=== PATIENT | male | born 1970 | race Caucasian/White ===

== ENCOUNTER → 2017-06-07 | Outpatient (CLI) | payer OTHER, SELFPAY | PROVIDERS: Visit Provider Orthopaedic Surgery | DX: M25.511 Pain in right shoulder (principal) | CPT/HCPCS: 73221 ==

== ENCOUNTER 2022-04-07 18:38 | Emergency (ER) | payer OTHER, SELFPAY ==
[2022-04-07 18:40] VITALS: BP 168/98; PULSE 90; RESP 16; TEMP 37; O2SAT 98; BMI 41.8
--- NOTE | 2022-04-07 19:18 | HMH.EDGENADL ---
Discharge Plan Disposition Patient Disposition: Home, Self-Care Condition: Good Prescriptions Prescriptions: New cefadroxil 500 mg capsule 500 mg PO BID 5 Days Qty: 10 0RF No Action furosemide [Lasix] 20 mg tablet 20 mg PO ONCE lisinopril 20 mg tablet 20 mg PO QDAY oxycodone-acetaminophen 1 EACH tablet 1 tab PO Q6HP PRN (Reason: Moderate To Severe Pain) Qty: 10 0RF tamsulosin 0.4 MG capsule,extended release 24hr 0.4 mg PO HS Qty: 10 0RF ondansetron 4 MG tablet,disintegrating 4 mg PO TIDP PRN (Reason: Nausea And Vomiting) Qty: 10 0RF Referrals Follow up/Referrals: Annamaria Rodney MD [Primary Care Provider] - See instructions Clinical Impressions Clinical Impression: Abrasion of left hand, initial encounter Discharge ED Provider: Cliff Hayden General Adult HPI General Chief complaint: Burn/Smoke Inhalation Stated complaint: AO 04/06 @1600 Poss concrete burn Time Seen by Provider: 04/07/22 19:00 History of Present Illness HPI narrative: Is a 51-year-old male with history of hypertension presenting with left hand injury. Patient states that he was shoveling concrete when he rubbed the skin off the medial aspect of his left third, fourth, fifth digits. He came to the ED for further evaluation given concern for concrete burn. Denies any other trauma, neurologic deficits, red streaking up his arms, fevers, chills, or any other concerning symptoms. Related Data Home Medications Medication Instructions Recorded Confirmed furosemide 20 mg tablet (Lasix) 20 mg PO ONCE blood pressure 07/04/17 11/16/17 lisinopril 20 mg tablet 20 mg PO QDAY blood pressure 07/04/17 11/16/17 Previous Rx's Medication Instructions Recorded ondansetron 4 mg disintegrating 4 mg PO TIDP PRN Nausea And 11/16/17 tablet Vomiting ##10 oxycodone-acetaminophen 5 mg-325 1 tab PO Q6HP PRN Moderate To 11/16/17 mg tablet Severe Pain #10 tabs tamsulosin 0.4 mg capsule 0.4 mg PO HS ##10 11/16/17 cefadroxil 500 mg capsule 500 mg PO BID 5 days #10 caps 04/07/22 Allergies Allergy/AdvReac Type Severity Reaction Status Date / Time No Known Allergies Allergy Verified 11/16/17 08:45 [facility] Social History Smoking Status: Never smoker alcohol intake: never current occupational status: employed Travel in the last 8 weeks: None ROS Obtained: Yes All systems reviewed & no additional complaints except as documented Physical Exam General General appearance: alert and in no apparent distress Head Head exam: atraumatic, normocephalic and normal inspection Eye Eye exam: Present normal appearance, PERRL and EOMI ENT ENT exam: Present normal exam, normal oropharynx, mucous membranes moist, TM's normal bilaterally and normal external ear exam Neck Neck exam: Present normal inspection, full ROM and trachea midline; Absent meningismus or lymphadenopathy Chest Chest inspection: Present normal inspection and symmetric chest wall rise; Absent tenderness Respiratory Respiratory exam: Present normal lung sounds bilaterally; Absent respiratory distress Cardiovascular Cardiovascular exam: Present regular rate and normal rhythm; Absent JVD Abdominal Exam Abdominal exam: Present soft and normal bowel sounds; Absent distention, tenderness or guarding Extremities Exam Extremities exam: Present normal inspection, full ROM and normal capillary refill; Absent calf tenderness Expanded Upper Extremity Exam Left: Hand L/R front image: 1. abrasion (With overlying concrete residue) 2. abrasion (With overlying concrete residue) 3. abrasion (With overlying concrete residue) Back Exam Back exam: Present normal inspection; Absent tenderness Neurological Exam Neurological exam: Present alert and oriented X3 Psychiatric Psychiatric exam: Present normal affect and normal mood Skin Skin exam: Present warm, dry, intact and normal color Lymphatic Lymphatic Findings: no adenopathy Medical D
[2022-04-07 19:31] VITALS: BP 166/83; PULSE 85; O2SAT 96
[2022-04-07 20:14] VITALS: BP 161/81; PULSE 82; RESP 16; TEMP 37; O2SAT 96
== END 2022-04-07 20:16 | disposition home or self-care (01) ==
PROVIDERS: Emergency Provider Emergency Medicine; PCP Family Medicine
DX: S60.512A Abrasion of left hand, initial encounter (principal)
CPT/HCPCS: 99282

== ENCOUNTER 2025-05-18 11:16 | Day surgery (SDC) | payer BC, SELFPAY ==
--- NOTE | 2025-05-08 13:10 | EXP.HP ---
History of Present Illness *Admission Date: 05/18/25 *History of present illness: Mr. Guerrero is a 54-year-old gentleman who is here for initial screening colonoscopy. The examination is deemed medically necessary for screening colonoscopy. The patient has been seen, interviewed and examined prior to the procedure by both myself and the anesthesia provider. [facility] Disclaimer: The information contained in this section may have been updated after the patient was seen, as this information can be updated by other users. Medical History Hypertension Surgical History History of back surgery Hx of repair of rotator cuff Family History Mother Cancer Social History (Updated 05/18/25 @ 12:32 by Shantanu Ventura CRNA) Smoking Status: Never smoker alcohol intake: never substance use type: denies use current occupational status: retired Travel in the last 8 weeks?: None caffeine: Yes Have you lived/traveled outside US in past 30 days?: No Contact w/someone who lives/traveled outside US past 30 days?: No Exposure to someone with infectious disease in past 14 days?: No Do you have a fever (greater than 100.4 F or 38 C)?: No Have you tested positive for COVID-19?: No Exposed to someone with COVID-19 in past 14 days?: No Do you have a sore throat?: No Do you have a cough?: No Do you have any weakness?: No Are you experiencing any nausea/vomitting?: No Do you have any diarrhea?: No Are you experiencing any unusual bleeding?: No Do you have any muscle aches/pain?: No Do you have any abdominal pain?: No Are you experiencing loss of taste or smell?: No Other Medical History Have you received the Flu Vaccine for this season: No Review of Systems Review of Systems Review of systems (narrative): Negative *Cardiovascular Comments: Negative *Gastrointestinal Comments: Negative *Genitourinary Comments: Negative *Musculoskeletal Comments: Negative *Neurologic Comments: Negative Meds Home Medications and Allergies Home Medications ?Medication ?Instructions ?Recorded ?Confirmed ?Type sod picosulf 10 mg-magnes 3.5 175 ml PO DAILY 2 doses #350 mL 01/16/24 Rx gram-citric 12 gram/175 mL oral solution (Clenpiq) sodium,potassium,mag sulfates 17.5 See Rx Instructions PO .COMPLEX 05/04/25 Rx gram-3.13 gram-1.6 gram oral soln #354 mL (Suprep Bowel Prep Kit) amlodipine 10 mg tablet 10 mg PO DAILY 05/18/25 05/18/25 History aspirin 81 mg tablet 81 mg PO DAILY 05/18/25 05/18/25 History doxazosin 8 mg tablet 8 mg PO HS 05/18/25 05/18/25 History hydrochlorothiazide 12.5 mg capsule 12.5 mg PO DAILY 05/18/25 05/18/25 History naproxen sodium 220 mg capsule 220 mg PO HS back pain 05/18/25 05/18/25 History (Aleve) omeprazole 20 mg capsule,delayed 20 mg PO HS 05/18/25 05/18/25 History release rosuvastatin 20 mg tablet 20 mg PO DAILY 05/18/25 05/18/25 History New Prescriptions to Start Prescriptions: Allergies Allergy/AdvReac Type Severity Reaction Status Date / Time No Known Allergies Allergy Verified 05/18/25 12:04 Exam *Routine HEENT Exam Head: Present normocephalic Eye: Present EOMI and PERRL ENT: Present mucous membranes moist *Routine Neck Exam Neck: Present supple *Routine Respiratory Exam Respiratory: Present CTA bilaterally *Routine Cardiovascular Exam Cardiovascular: Present RRR *Routine Abdominal Exam Abdominal: Present soft and normoactive bowel sounds; Absent tenderness *Routine Rectal Exam Rectal:: deferred *Routine Genitalia Exam Genitalia:: deferred *Routine Extremities Exam Extremities: Absent cyanosis, clubbing or edema *Routine Skin Exam Skin: Present warm; Absent rash *Routine Neurological Exam Neurological: Present alert and oriented X3 Assessment and Plan *Assessment and plan (1) Screening for colon cancer: Status: Acute Category: Medical Code(s): Z12.11 - Encounter for screening for malignant neoplasm of colon Plan A/P: 1. Screening for colon cancer is the preprocedural diagnosis. The patient will be anesthetized/sedated using MAC sedation. The patient has been seen and examined. Cardiac and lung assessment prior to the examination is stable. Proceed with planned screening colonoscopy.
[2025-05-12 12:55] VITALS: BMI 36.9
--- NOTE | 2025-05-18 07:11 | P.PCN_ITS ---
[facility] Procedure Note Date: 05/18/25 Time: 14:02 Procedure Note:: Colonoscopy Procedure Report: Colonoscopy Endoscopist: Donny Galo II, MD Referring physician: Stiven Rodney MD Date of Procedure: May 18, 2025 Equipment: Olympus [id number] adult colonoscope Sedation: MAC sedation Indication: Mr. Guerrero is a 54-year-old gentleman who is here for initial screening colonoscopy. The patient reports no abdominal pain, weight loss, change in his bowel habits or rectal bleeding. He reports no family history of colon cancer. The examination is deemed medically necessary for screening colonoscopy. Procedure: Prior to the procedure, a history and physical exam was performed, and patient's medications and allergies were reviewed. The risks, benefits and alternatives of the sedation and procedure were discussed with the patient. All questions were answered and informed consent was obtained. The patient was brought to the procedure room. Patient identification and proposed procedure were verified by the physician and the nurse. The patient was placed in a left lateral decubitus position and the scope was passed under direct vision. Throughout the procedure, the patient's blood pressure, pulse, and oxygen saturations were monitored continuously. The colonoscopy was accomplished without difficulty. The patient tolerated the procedure well. Findings: On digital rectal examination there was normal rectal tone. There were no external hemorrhoids. The prostate was 2+, smooth, soft, symmetric without nodules. The colonoscope was introduced through the anal canal to the rectum and advanced to the cecum. The ileocecal valve and appendiceal orifice were bianca ntified. The scope was advanced a short distance into the ileum which appeared grossly normal. The scope was then withdrawn into the colon. The cecum, ascending, transverse, descending, sigmoid and rectum were grossly normal. There were no mucosal abnormalities identified. Upon retroflexion within the rectum there were grade 1-2 internal hemorrhoids. The preparation was excellent throughout with Corrales Preparation Score of 9. The cecal time was 10 minutes. Impression: 1. Normal colonoscopy with intubation of the terminal ileum 2. Grade 1-2 internal hemorrhoids Plan: The patient will not require screening/surveillance colonoscopy again for 10 years per ACS guidelines.
[2025-05-18 12:05] VITALS: BP 131/72; PULSE 41; RESP 16; TEMP 36.7; O2SAT 99
[2025-05-18] MEDS: LACTATED RINGERS 1000ML 1,000 ML 50 ML IV (12:16)
--- NOTE | 2025-05-18 12:30 | EXP.ANES.CKL ---
[facility] Disclaimer: The information contained in this section may have been updated after the patient was seen, as this information can be updated by other users. Medical History Hypertension Surgical History History of back surgery Hx of repair of rotator cuff Family History Mother Cancer Social History (Updated 05/18/25 @ 12:06 by Tiana Houston RN) Smoking Status: Never smoker alcohol intake: never substance use type: denies use current occupational status: retired Travel in the last 8 weeks?: None caffeine: Yes [facility] Anesthesia Checklist Patient Identification Patient Identification: Arm Band and Family Structural Data Admitted From: Home Planned Operative Procedure/s: Colonoscopy. Consent for Planned Operative Procedure(s) Verified: Yes Verified Documents: Surgical Consent and History and Physical NPO Status Verified Time NPO: 00:00 Additional verifications Patient : No Anesthesia Reactions: No Hx Blood Transfusions: No Blood Transfusion Reaction: No Cephalosporin Allergy: No Previous Colonoscopy: No Airway Assessment Mallampati Score:: Class II C-Spine Mobility Assessed: Yes TMJ Mobility Assessed: Yes Dentition: Good Dentition Neurological Assessment Level of Consciousness: Awake, Alert, Appropriate and Follows Commands Hx Seizures: No Numbness or tingling in extremities: No Anesthesia Plan Anesthesia Risk discussed: Yes ASA Class: II Anesthesia Type: MAC
[2025-05-18 14:04] VITALS: BP 124/68; PULSE 58; RESP 20; TEMP 36.1; O2SAT 95
[2025-05-18 14:14] VITALS: BP 113/67; PULSE 54; O2SAT 96
[2025-05-18 14:24] VITALS: BP 122/72; PULSE 60; O2SAT 96
[2025-05-18 14:34] VITALS: BP 130/75; PULSE 59; O2SAT 97
== END 2025-05-18 14:34 | disposition home or self-care (01) ==
PROVIDERS: PCP Family Medicine; Visit Provider Internal Medicine Gastroenterology
PROC: 0DJD8ZZ Inspection of Lower Intestinal Tract, Via Natural or Artificial Opening Endoscopic (ICD-10-PCS; CPT 45378; principal; 2025-05-18 13:00)
DX: Z12.11 Encounter for screening for malignant neoplasm of colon (principal); K64.0 First degree hemorrhoids; K64.1 Second degree hemorrhoids; I10 Essential (primary) hypertension; Z79.899 Other long term (current) drug therapy; Z79.82 Long term (current) use of aspirin
CPT/HCPCS: 45378; J2003; J2704; J7120

== ENCOUNTER 2025-06-09 11:44 | Outpatient (CLI) | payer BC, SELFPAY ==
--- OUTSIDE RECORDS SUMMARY | 2025-02-04 10:15 | XMS_ITS ---
Author Organization [facility] Address [address] [id number] Care Team Providers Care Compensation Agent Name Role Phone Ivory Rodney Primary Care Provider [phone] Artem Torres Unavailable [phone] Cony Torres Unavailable [phone] Allergies No Known Allergies Results Component Value Reference Range Notes CBC Fingerstick (in house) Reviewed date:02/04/2025 04:53:23 PM Interpretation: Performing Lab: Notes/Report: wbc 6.1 3.5 - 10 lym 18.5% 15 - 50 mid 5.9% 2 - 15 gran 75.6% 35 - 80 rbc 4.95 3.5 - 5.5 hgb 14.9 11.5 - 16.5 hct 44.6 35 - 55 mcv 90.1 75 - 100 mch 30.2 25 - 35 mchc 33.5 31 - 38 plat 150 100 - 400 Covid test (in house) Reviewed date:02/04/2025 04:53:23 PM Interpretation: Performing Lab: Notes/Report: Result: pos REASON FOR VISIT poss.sinus infection Medications Medication SIG (Take, Route, Frequency, Duration) Notes Start Date End Date Status Omeprazole 20 MG 1 tablet 30 minutes before morning meal Orally Once a day; Duration: 30 day(s) Active Bisoprolol Fumarate 5 MG 1 tablet Orally Once a day; Duration: 30 day(s) Active dilTIAZem HCl ER 180 MG 1 tablet Orally Once a day; Duration: 30 day(s) Active hydroCHLOROthiazide 12.5 MG 1 tablet in the morning Orally Once a day; Duration: 30 day(s) Active Rosuvastatin Calcium 40 MG 1 tablet Oral ly Once a day; Duration: 30 day(s) Active Molnupiravir 200 MG 4 capsules Orally ev ulysses 12 hrs; Duration: 5 days 02/04/2025 Active Benzonatate 200 MG 1 capsule as needed Orally Three times a day 02/04/2025 Active Amoxicillin 875 MG 1 tablet Orally Twic e a day; Duration: 7 days 02/04/2025 Active Aspirin 81 MG 1 tablet Orally Once a day; Duration: 30 day(s) Active Medrol 4 MG as directed Orally 02/04/2025 Active Doxazosin Mesylate 8 MG 1 tablet Orally Once a day; Duration: 30 day(s) Active Vital Signs Blood pressure systolic 132 mm Hg 02/05/20 25 Blood pressure diastolic 72 mm Hg 025 Heart Rate 68 /min 02/04/2025 Height 67 in 02/04/2025 Weight 251.2 lbs 02/04/2025 BMI 39.34 kg/m2 02/04/2025 Encounters Encounter Location Date Provider Diagnosis [facility] [address], [place] [id number] 02/04/2025 Cony Torres Acute URI J06.9 and COVID-19 U07.1 Assessments Encounter Date Diagnosis (ICD Code) Assessment Notes Treatment Notes Treatment Clinical Notes Section Notes 02/04/2025 Acute URI (ICD-10 - J06.9) 02/04/2025 COVID-19 (ICD-10 - U07.1) Fluids, rest, supportive measures for fever and symptoms relief, discussed covid vitamins and isolation period. Plan Of Treatment Medication Medication Name Sig Start Date Stop Date Notes Molnupiravir 200 MG 4 capsules Orally ev ulysses 12 hrs; Duration: 5 days 02/04/2025 Benzonatate 200 MG 1 capsule as needed Orally Three times a day 02/04/2025 Amoxicillin 875 MG 1 tablet Orally Twic e a day; Duration: 7 days 02/04/2025 Medrol 4 MG as directed Orally 02/04/2025 Treatment Notes Assessment Notes COVID-19 Fluids, rest, suppor tive measures for fever and symptoms relief, discussed covid vitamins and isolation period. Next Appt Details Follow Up: prn, Reason: Provider Name:Artem Stone ry, 06/09/2025 11:15:00 AM, [address], [address] , [place], [place], [id number], Progress Notes * Bib GUERREROOB:1970 ( 54 yo M)Acc No.[id number]:02/04/2025 Progress Notes Patient: Zhao BLACKMON Provider: ERVIN Sotelo :1970 A ge:54 Y S ex:Male Date:02/04/2025 Address:[address] [place] [address], [place], [facility] Pcp:Ivory Rodney Subjective: * Chief Complaints: * 1 . Poss.sinus infection. * HPI: E NT/respiratory: Pt states these symptoms stared 3 days ago. Pt states he is getting worse. 54 year old male presents with c/o cough d ry without any sputum production. c/o nasal congestion. c/o Fever w ith chills. Denies : sore throat. D enies : ear pain. D enies : Chest Pain. D enies : Short of Breath. D enies : headache. D enies : chest congestion. D enies : dizziness. D enies : body aches. * ROS: D ERMATOLOGY: no R evette. n o H dong. G ASTROENTEROLOGY: no N ausea. n o V omiting. n o D iarrhea.? U ROLOGY: no D ifficulty urinating. n o B lood in urine. * Medical History: A llergies. * Surgical History: r otator cuff(RT.) 2005, back surgery 08/01, Right Rotator Cuff Surgery 2020, Left Rotator Cuff Surgery 2021. * Hospitalization/Major Diagno stic Procedure: s taph infection in eye , drink bone worker fluid , heart attack . * Family History: F ather: alive. M other: alive. 2 brother(s) . 2 daughter(s) . . * Social History: C URRENT TOBACCO USE S moking Status: Patient does NOT smoke, Type of smokeless tobacco used: dip. C affeine: no, frequency:. Exercise: yes. Home smoke detector use: yes. Marital Status: . New since last visit: none. Occupation: yes. Past smoking status: no. Occup. exposure: none. Recreational drug use: no. Alcohol: Type: , Frequency: ,Years: , Determination:. Sexually active: yes. Travel ouside [place]: yes. * Medications: T aking Omeprazole 20 MG Tablet Delayed Release 1 tablet 30 minutes before morning meal Orally Once a day , Taking Bisoprolol Fumarate 5 MG Tablet 1 tablet Orally Once a day , Taking hydroCHLOROthiazide 12.5 MG Tablet 1 tablet in the morning Orally Once a day , Taking dilTIAZem HCl ER 180 MG Tablet Extended Release 24 Hour 1 tablet Orally Once a day , Taking Rosuvastatin Calcium 40 MG Tablet 1 tablet Orally Once a day , Taking Doxazosin Mesylate 8 MG Tablet 1 tablet Orally Once a day , Taking Aspirin 81 MG Tablet Chewable 1 tablet Orally Once a day , Medication List reviewed and reconciled with the patient * Allergies: N .K.D.A. Objective: * Vitals: W t: 251.2, Temp: 98.0, BP: 132/72, HR: 68, Nurse: pe, Ht: 67, BMI:39.34. * Examination: E NT/Respiratory: General Appearance: N AD. E ars: a uditory canals normal bilaterally, TM's WNL. N ose : t urbinates red, congested. S inuses : t james maxillary sinuses bilaterally. O ral cavity : e rythema without exudate on pharynx. N toni : n o cervical lymphadenopathy. H eart : R RR, normal S1 S2, no murmurs. L ungs:?clear to auscultation bilaterally. Assessment: * Assessment: 1. A ida URI - J06.9 (Primary) 2 . C OVID-19 - U07.1 Plan: * Treatment: Value Reference Range w bc 6.1 3.5 - 10 * l ym 18.5% 15 - 50 * m id 5.9% 2 - 15 * g ran 75.6% 35 - 80 * r bc 4.95 3.5 - 5.5 * h gb 14.9 11.5 - 16.5 * h ct 44.6 35 - 55 * m cv 90.1 75 - 100 * m ch 30.2 25 - 35 * m chc 33.5 31 - 38 * p lat 150 100 - 400 * Nichole Ziegler 02/04/2025 0 4:17:58 PM EDT > Provider reviewed results while patient in office. 2.?COVID-19? Start Molnupiravir Capsule, 200 MG, 4 capsules, Orally, every 12 hrs, 5 days, 40, Refills 0.? Notes: Fluids, rest, supportive measures for fever and symptoms relief, discussed covid vitamins and isolation period.?? * Labs: * L ab: Covid test (in house) (Collection Date & Time - 02/04/2025) Value Reference Range R esult: pos * Nichole Ziegler 02/04/2025 0 4:51:18 PM EDT > Provider reviewed results while patient in office. * Procedure Codes: 3 6416 CAPILLARY BLOOD DRAW, 41703 CBC WITH AUTO DIFF, 76713 COVID TEST IN HOUSE, Modifiers: QW , 1036F TOBACCO NON-USER, 3075F SYST BP GE 130 - 139MM HG, 3078F DIAST BP < 80 MM HG * Follow Up: p rn * Images: Billing Information: * Visit Code: 38212 Office Visit, Est Pt., Level 3. * Procedure Codes: 41001 CAPILLARY BLOOD DRAW. 60008 CBC WITH AUTO DIFF. 17038 COVID TEST IN HOUSE. Modifiers: QW 1036F TOBACCO NON-USER. 3075F SYST BP GE 130 - 139MM HG. 3078F DIAST BP < 80 MM HG. * Electronic signature of ERVIN Cardona on 06/09/2025 at 11:47 AM EST Sign off status: Pending * Provider: ERVIN Sotelo Date: 0 02/04/2025 Generated for Sal ng/Fafaviolag/eTransmitting on: 1 08/10/2024 11:47 AM EST History and Physical Notes * HPI (History of Present Illness) Category Sub-Category Detail Notes Category Not es ENT/respiratory sore throat ear pain Short of Breath Chest Pain cough dry without any sput um production Fever with chills headache chest congestion nasal congestion dizziness body aches Examination Category Sub-Category Detail Notes Category Not es ENT/Respiratory Oral cavity : erythema without exudate on pharynx Sinuses : tender maxillary sin uses bilaterally Ears: auditory canals norm al bilaterally, TM's WNL Neck : no cervical lymphade nopathy Heart : RRR, normal S1 S2, n o murmurs Lungs: clear to auscultatio n bilaterally General Appearance: NAD Nose : turbinates red, polo ested
--- NOTE | 2025-06-09 11:47 | XR_ITS ---
FINAL REPORT CLINICAL HISTORY: PAIN IN RIGHT KNEE COMPARISON: none FINDINGS: LEFT KNEE 3 views of the left knee were obtained. There is no acute fracture or dislocation. There is mild tricompartmental degenerative change. No large joint effusion. Soft tissues are unremarkable. IMPRESSION: Mild degenerative change without acute bony abnormality. Reviewed, Interpreted and Dictated by Annamaria Morfin MD Transcribed by Carolann Castillo Authenticated and [facility]
--- OUTSIDE RECORDS SUMMARY | 2025-06-09 11:48 | XMS_ITS | Encounter Summary ---
Author Organization [facility] Address [address] [place] [id number] Care Team Providers Care Certified Medical Asst Name Role Phone Trena Fox MD Primary Care Provider + Reason for Visit * Reason Onset Date Comments Med Refill 05/13/2025 Encounter Details Date Type Department Care Team (Late st Contact Info) Description 05/13/2025 Refill [facility] [address] [place] [phone] Isabella Chávez APRN [address] [place] [address] [place] [address] Med Refill Social History Tobacco Use Types Packs/Day Years Used Date Smoking Tobacco: Never Passive Smoke Exposure: Never Smokeless Tobacco: Current Chew Comments:IN QRS IT SAYS CURR ENT EVERY DAY SMOKER Alcohol Use Standard Drinks/Week Comments Yes 0 (1 standard drink = 0.6 oz pur e alcohol) occassional AUDIT-C Answer Date Recorded Q1: How often do you have a drink containing alcohol? Never 05/04/2022 Q2: How many drinks containi ng alcohol do you have on a typical day when you are drinking? Patient does not drink Q3: How often do you have si x or more drinks on one occasion? Never 05/04/2022 Abuse Screen Answer Date Recorded Feels Unsafe at Home or Work/School no 05/04/2022 Feels Threatened by Someone no 04/18 Does Anyone Try to Keep You From Having Contact with Others or Doing Things Outside Your Home? no 05/04/2022 Physical Signs of Abuse Present no 05/04/2022 Housing Stability Answer Date Recorded Current Living Arrangements home 04/18 Potentially Unsafe Housing Conditions Not on ivan e 05/04/2022 Disabilities Answer Date Recorded Difficulty Concentrating, Remembering or Making Decisions no 05/04/2022 Difficulty Managing Errands Independently no 05/04/2022 Sex and Gender Information Value Date Recorded Sex Assigned at Not on file Legal Sex Male 11:11 AM EDT Gender Identity Not on file Sexual Orientation Not on file documented as of this encounter Plan of Treatment Not on file documented as of this encounter Visit Diagnoses Not on filedocumented in this encounter Care Teams Certified Medical Asst Relationship Specialty Start Date End Date Trena Fox MD [address] [place], [place] [id number] PCP - General Family Medicine 08/25/20 documented as of this encounter
--- OUTSIDE RECORDS SUMMARY | 2025-06-09 11:48 | XMS_ITS | Encounter Summary ---
Author Organization [facility] Address [address] [place] [address] Care Team Providers Care Gear Cutting Machine Set Up Operator Name Role Phone Trena Fox MD Primary Care Provider + Reason for Visit * Reason Comments Med Refill Encounter Details Date Type Department Care Team (Late st Contact Info) Description 04/29/2025 Refill [facility] [address] [place] [phone] Molly Grace MD [address] [place] [address] Med Refill Social History Tobacco Use [...] on filedocumented in this encounter Care Teams Gear Cutting Machine Set Up Operator Relationship Specialty Start Date End Date Trena Fox MD [address] [place], [place] [id number] PCP - General Family Medicine 08/25/20 documented as of this encounter
--- OUTSIDE RECORDS SUMMARY | 2025-06-09 11:48 | XMS_ITS | Encounter Summary ---
Author Organization [facility] Address [address] [place] [address] Care Team Providers Care Food Processing Chemist Name Role Phone Trena Fox MD Primary Care Provider + Encounter Details Date Type Department Care Team (Late st Contact Info) Description 08/12/2013 Conversion Encounter [facility] HISTORICAL CONV [address] [place] [address] Interface, See Report Social History Tobacco Use Types Packs/Day Years Used Date Smoking Tobacco: Never Assessed Sex and Gender Information Value Date Recorded Sex Assigned at Not on file Legal Sex Male 11:11 AM EDT Gender Identity Not on file Sexual Orientation Not on file documented as of this encounter Discharge Summaries * Interface, See Report - 08/12/2013 6:09 AM EST [address] [address] DISCHARGE SUMMARY PATIENT NAME: ZHAO GUERRERO [address] [facility] NO: [id number] DATE OF : 1970 DATE OF ADMISSION: 08/12/2013 DATE OF DISCHARGE: 08/13/2013 ATTENDING PHYSICIAN: MANSOOR Luo PRIMARY CARE PHYSICIAN: DIAGNOSIS: Spinal stenosis. PROCEDURE: L4-L5 decompression. SURGEON: Valorie Doan MD. HISTORY AND PHYSICAL: Please see note on chart. HOSPITAL COURSE: The patient was admitted where he underwent the above procedure. Postoperatively, he went to a regular bed on the floor. By postop day 1, he was independent with gait and transfers, tolerating a regular diet. Vitals were stable. Leg pain was gone. It was felt he was ready for discharge at this time. DISPOSITION: He will be discharged home. FOLLOW-UP: He will follow-up to see me in 2 weeks. CONDITION: Good. VITAL SIGNS: Vitals are stable. DISCHARGE MEDICATIONS: Medications are unchanged from admission with the exception of Lortab 10 as needed for pain. Valorie Doan MD* GCS/rxtd Voice Rec. ID #[id number] Voice Original ID #[id number] Doc ID #[id number] Rev. #1 [No PCP on file] cc: Valorie Doan MD* DO NOT TEXT EDIT THIS LINE :CDS:[id number]: Authenticated by VALORIE DOAN M.D. On 08/19/2013 11:19:55 AM documented in this encounter OR Notes * Op Note - Interface, See Report - 08/12/2013 6:09 AM EST [place] [id number] OPERATIVE REPORT PATIENT NAME: ZHAO GUERRERO9 [address] [facility] NO: [id number] DATE OF : 1970 DATE OF OPERATION: 08/12/2013 ADMITTING PHYSICIAN/SURGEON: Valorie Doan MD [employer] ATTENDANT: Jah Amaya PA-C PREOPERATIVE DIAGNOSIS: Spinal stenosis, L4-L5. POSTOPERATIVE DIAGNOSIS: Spinal stenosis, L4-L5. PROCEDURE PERFORMED: L4-5 decompression, including partial on the right, including partial medial facetectomy and foraminotomies of L4 and 5. INDICATIONS FOR PROCEDURE: The patient is a 43-year-old male with intractable back and right leg pain. Preop studies reveal stenosis at L4-L5 on the right. This is due to a combination of facet hypertrophy and a disc protrusion. He presents for decompression. The risks and benefits were described to him at a preoperative informed consent meeting. DESCRIPTION OF PROCEDURE: After adequate general anesthetic, the patient was placed in the prone position on the Kenny frame. Care was taken to pad all bony prominences. The back was prepped and draped in the usual fashion. A spinal needle was placed. After the proper level was confirmed, a 1-1/4 inch incision was made, centered over L4-L5, and carried deeply through the fascia on the right side. The lamina of L4 and L5 were subperiosteally exposed. A deep x-ray was also taken to confirm we were at the appropriate level. After confirmation, the inferior portion of the L4 lamina and the superior portion of the L5 lamina were removed with Kerrison punches. The ligamentum flavum was removed as well. A partial medial facetectomy was then performed. I took care to assure that I did not resect any of the facet joint, I just undercut the medial facet. Care was also taken to preserve greater than 1 cm of the L4 pars. There was moderate recess stenosis noted at L4-L5. This had been partially relieved by the medial facetectomy. There was a bulging disc that extended into the foramen; however, there was no herniated fragment. Foraminotomies were then performed at both the L4 and L5 with small Kerrison punches. At the completion, I could easily pass a Kuhn ball probe into the L4 and the L5 foramen. Given the fact I could not identify a distinct herniated disc, I elected not to cut into the annulus. The wound was copiously irrigated at this time. Gelfoam was placed over the dural surface. The fascia was closed with interrupted 0-Vicryl, subcu with 2-0 and 3-0, and the skin with subcuticular stitch. He was transferred to the recovery room in stable condition. Blood loss was minimal for the procedure. Valorie Doan MD* GCS/rxsmj Voice Rec. ID #[id number] Original Voice Rec. ID #[id number] Doc ID #[id number] Revision Count: 0 cc: Valorie Doan MD* <start header> [address] [address] OPERATIVE REPORT PATIENT NAME: ZHAO GUERRERO [address] [facility] NO: [id number] DATE OF : 1970 <end header> DO NOT TEXT EDIT THIS LINE :TIE PULLER:[id number]: Authenticated by VALORIE DOAN M.D. On 08/14/2013 09:50:39 AM documented in this encounter Plan of Treatment Not on file documented as of this encounter Procedures Procedure Name Priority Date/Time Associated Diagnosis Comments XR LOST NEEDLE OR Routine 08/12/2013 11: 47 AM EST XR SPINE LUMBAR LATERAL Routine 08/12/2013 11:04 AM EST XR SPINE LUMBAR LATERAL Routine 08/12/2013 6:19 AM EST SCANNED EKG 08/12/2013 CBC (NO DIFF) Routine 08/11/2013 4:45 PM EST POTASSIUM Routine 08/11/2013 4:45 PM EST documented in this encounter Results * X-RAY LOST NEEDLE OR (08/12/2013 11:47 AM EST) Anatomical Region Laterality Modality Body Radiographic Kat ging 08/12/2013 11:4 7 AM EST Narrative 08/12/2013 5:17 PM EST HISTORY: Incorrect needle count PORTABLE LATERAL VIEW OF THE LUMBAR SPINE AND ADJACENT SOFT TISSUES AND OR AT NO PERFORMANCE OR PROFESSIONAL CHARGE FINDINGS: By history, a relatively large needle was seen to fall away from the patient but could not be immediately located. This image shows clothing fold shadows superimposed over the dorsal soft tissues. There is no evidence of metallic foreign body to suggest retained needle. Director Of Casework- ROSSY CARRANZA Reading Radiologist- DONNY CARRASCO Releasing Radiologist- DONNY CARRASCO Released Date Time- 08/12/13 2048 Procedure Note Donny Pappas MD - 03/09/2015 HISTORY: Incorrect needle count PORTABLE LATERAL VIEW OF THE LUMBAR SPINE AND ADJACENT SOFT TISSUES AND OR AT NO PERFORMANCE OR PROFESSIONAL CHARGE FINDINGS: By history, a relatively large needle was seen to fall away from the patient but could not be immediately located. This image shows clothing fold shadows superimposed over the dorsal soft tissues. There is no evidence of metallic foreign body to suggest retained needle. Director Of Casework- ROSSY CARRANZA Reading Radiologist- DONNY CARRASCO Releasing Radiologist- DONNY CARRASCO Released Date Time- 08/12/132047 Valorie Doan MD IMG DIAGNOSTIC IMAGING ORDERABLES Final Result * X-RAY LUMBAR SPINE LATERAL (08/12/2013 11:04 AM EST) Anatomical Region Laterality Modality Spine, L-spine N/A Radiographic Kat ging 08/12/2013 11:0 4 AM EST Narrative 08/12/2013 12:32 PM EST PRONE CROSS TABLE LATERAL VIEW LUMBAR SPINE: HISTORY: disc space localization, surgical procedure, discectomy, severe back pain and stenosis FINDINGS: 1. A probe is directed from the posterior approach and is directed to the posterior aspect of the L4-L5 interspace. E: 08/12/2013 Director Of Casework- JOE ECHAVARRIA Reading Radiologist- SILVER ENGLISH Releasing Radiologist- SILVER ENGLISH Released Date Time- 08/12/13 1301 Procedure Note Silver Liang MD - 03/09/2015 PRONE CROSS TABLE LATERAL VIEW LUMBAR SPINE: HISTORY: disc space localization, surgical procedure, discectomy, severe back pain and stenosis FINDINGS: 1. A probe is directed from the posterior approach and is directed to the posterior aspect of the L4-L5 interspace. E: 08/12/2013 Director Of Casework- JOE Meade Radiologist- SILVER ENGLISH Releasing RadiologistAbundio ENGLISH Released Date Time- 08/12/13 1301 Valorie Doan MD IMG DIAGNOSTIC IMAGING ORDERABLES Final Result * X-RAY LUMBAR SPINE LATERAL (08/12/2013 6:19 AM EST) Anatomical Region Laterality Modality Spine, L-spine N/A Radiographic Kat ging 08/12/2013 6:19 AM EST Narrative 08/12/2013 12:32 PM EST PRONE CROSSTABLE LATERAL VIEW LUMBAR SPINE HISTORY: Disc space localization, herniated disc, back pain, surgical localization FINDINGS: 1. A needle is directed to the posterior aspect of the L4 vertebral body for preoperative localization. Director Of Casework- ROSSY CARRANZA Reading Radiologist- SILVER ENGLISH Releasing Radiologist- SILVER ENGLISH Released Date Time- 08/12/13 1302 Procedure Note Silver Liang MD - 03/09/2015 PRONE CROSSTABLE LATERAL VIEW LUMBAR SPINE HISTORY: Disc space localization, herniated disc, back pain, surgical localization FINDINGS: 1. A needle is directed to the posterior aspect of the L4 vertebral body for preoperative localization. Director Of Casework- ROSSY CARRANZA Reading Radiologist- SILVER ENGLISH Releasing Radiologist- SILVER ENGLISH Released Date Time- 08/12/13 1302 Valorie Doan MD IMG DIAGNOSTIC IMAGING ORDERABLES Final Result * SCANNED EKG (08/12/2013) [facility] ECG ORDERABLES Final Result * Potassium (08/11/2013 4:45 PM EST) Pathologist [facility] Potassium 4.4 3.4 - 5.4 mmol/L [facility] Blood specimen (specimen) 08/11/2013 4:45 PM EST Narrative [facility] - 08/11/2013 5:21 PM EST Specimen Type: Blood Valorie Doan MD LAB BLOOD ORDERABLES Fi nal Result [facility] [address] [place] [address], * CBC (No diff) (08/11/2013 4:45 PM EST) Pathologist [facility] WBC 7.14 3.50 - 10.80 K/[facility] RBC 4.86 4.20 - 5.76 M/[facility] Hemoglobin 14.9 13.1 - 17.5 g/dL [facility] Hematocrit 44.0 38.9 - 50.9 % [facility] MCV 90.5 80.0 - 99.0 fL [facility] MCH 30.7 27.0 - 31.0 pg [facility] MCHC 33.9 32.0 - 36.0 g/dL [facility] RDW-CV 12.4 11.3 - 14.5 % [facility] Platelets 205 150 - 450 K/mcL [facility] Blood specimen (specimen) 08/11/2013 4:45 PM EST Narrative [facility] - 08/11/2013 5:04 PM EST Specimen Type: Blood Valorie Doan MD LAB BLOOD ORDERABLES Fi nal Result Performing Organization Address City/State/RUST Co de Phone Number [facility] [address] [phone] documented in this encounter Visit Diagnoses Not on filedocumented in this encounter Additional Health Concerns Infection Onset Date Last Indicated Resolved Time COVID Screen (preop/placement) 08/29/2020 08/29/2020 08/29/2020 6:37 PM EDT COVID Screen (preop/placement) 05/08/2021 05/08/2021 05/08/2021 9:02 PM EST documented as of this encounter Care Teams Food Processing Chemist Relationship Specialty Start Date End Date Trena Fox MD [address] [place], [place] [id number] PCP - General Family Medicine 08/25/20 documented as of this encounter
--- OUTSIDE RECORDS SUMMARY | 2025-06-09 11:48 | XMS_ITS | Data Portability ---
Author Organization [facility] Address [address] [facility] [address] [place] [address] Assessment Encounter Date Assessment Date Assessment LastModified by Organization Details LastModified Time 08/27/2017 08/27/2017 We had a long discussion about all the findings and the treatment options. We discussed at this point in time that the Reading protocol may be helpful to try to get his right shoulder in a little bit better mechanical position. His major concern right now is his left shoulder and arm. He is to have this evaluated by an orthopedic surgeon who specializes in neck trouble. We gave him the different treatment options of the capsular reconstruction and the reverse total shoulder arthroplasty. He will return to see me in another 2 months. We can reevaluate him at that time. He can increase his activities to the level of tolerance. [id number] Not available 08/27/2017 13:28:02 Plan of Treatment Reminders Order Date Submit Date Provider Last Modified By Organization Details Last Modified Time Details Appointments None record ed. Lab None record ed. Referral None record ed. Procedures None record ed. Surgeries None record ed. Imaging None record ed. Medication Orders None record ed. Patient TargetsNo targets recorded. Patient Instructions Encounter Date Encounter Id Patient Instructions Last Modified By Organization Details Last Modified Time 08/27/2017 [id number] rotator cuff injury: care instructions Not available 08/27/2017 14:03:18 shoulder arthritis: exercises Not available 08/27/2017 14:03:18 IMPRESSION: I think he does have some arthrosis. We did obtain the MRI, and it shows arthrosis in the inferior half. He has superior humeral head migration. He has a large u-shaped retracted tear with about a 50% loss of muscle mass in the supraspinatus and some infiltration. AC joint shows some thickening with a very small inferior bone spur. The biceps is subluxed on the dorsal aspect of the groove. [email or web address] Not available 08/27/2017 13:28:04 Reason for Referral None Reported. Results Created Date Observation Date Name Description Value Unit Range Abnormal Flag Note LastModifiedBy Organization Detail LastModifiedTime 08/28/19 18 08/27/2017 XR, shoul hanh, 2 or more view [place] Formerly named [facility] [address] [place] [address] Patigio t Name: ZHAO Rogers t : [phone] Patigio t Orderi ng Provid er: Jarrod ALEXIS EXAM DATE: 2017 EXAM: XR RT SHOULD ER COMPLE TE RADIOG RAPHIC VIEWS: 2 view right should er COMPAR HERMANN: None. HISTOR Y: Right should er pain. Histor y of trauma FINDIN GS: This patien t has a fractu re of the proxim al humeru s howeve r this is manife sted as a sclero tic area likely indica margie a remote injury , now healed . No acute fractu re is noted in the alignm ent is intact . Mild degene rative change s are sugges jasvir at the glenoh umeral joint. IMPRES JEFERSON: Old fractu re of the proxim al right humeru s. Mild degene rative change s Interp reted By: Mp Leong MD Electr onical ly Signed By: Mp Leong MD on 018 11:23 AM [email or web address] [facility] [address] [place], [address], 08/27/2017 14:01:22 Result Notes Documentation Provider Name and Address Organization Details Recorded Time Xr, Shoulder, 2 Or More View : [facility] [address] [place] [address] Patient Name: ZHAO GUERRERO Patient : 1970 Patient Ordering Provider: Jarrod ALEXIS EXAM DATE: 08/27/2017 EXAM: XR RT SHOULDER COMPLETE RADIOGRAPHIC VIEWS: 2 view right shoulder COMPARISON: None. HISTORY: Right shoulder pain. History of trauma FINDINGS: This patient has a fracture of the proximal humerus however this is manifested as a sclerotic area likely indicates a remote injury, now healed. No acute fracture is noted in the alignment is intact. Mild degenerative changes are suggested at the glenohumeral joint. IMPRESSION: Old fracture of the proximal right humerus. Mild degenerative changes Interpreted By: Mp Leong MD Jarrod ALEXIS MD [address] [place] [address], [phone] 08/27/2017 14:01:22 Procedures Surgical History Date Name Laterality Status Provider Name and Address Organization Details Recorded Time Orthopedic Surgery completed [facility] 08/27/2017 09:21:41 Back Surgery completed [facility] 08/27/2017 10:35:05 Imaging Results None recorded. Procedure Notes None recorded. Medical Equipment None Reported. Allergies No known drug allergies Medications Name Sig Start Date Stop Date Status Note LastModified by Organization Details LastModified Time furosemide active Not Available Not Av ailable Not Available lisinopril active Not Available Not Av ailable Not Available Vitals Date Recorded Body height Body mass index (BMI) Body weight Systolic And Diastolic Provider Name and Address Organization Details Last Updated DateTime 08/27/2017 172.72 cm 36.5 kg/m2 873514.17 g 122/78 mm[Hg] [facility] 08/27/2017 10:34:11 Social History Question Answer Notes LastModified by Organizat ion Details LastModified Time Tobacco Smoking Status Never Smoker [facility] 08/27/2017 09:23:25 What Was The Date Of Your Most Recent Tobacco Screening? 08/27/2017 Information n ot available 08/05/2019 Sex: Unknown Functional Status None recorded. Mental Status None recorded. Family History Relationship Description Onset Age of this Age Resolved Age Notes LastModified by Organization Details LastModified Time Unspecified Relation Diabetes mellitus [email or web address] Not available 2017 09:24:04 Medical History Condition Response Diabetes N Allergies/Hayfever Y Bleeding Disorder N Anxiety/Depression N Thyroid Disease N Arthritis N Kidney Stones N Heart Conditions N Blood Clot N Tuberculosis N Hernia Y Cancer N Migraines N Stroke N Asthma N COPD N Pneumonia N Blood Thinners N Immune System Disorder N Sleep Apnea N High Cholesterol Y Anesthesia Complications N Liver Disease N Hypertension Y Osteoporosis N Kidney Disease N Past Encounters Encounter ID Performer Location Encounter Start Date Encounter Closed Date Diagnosis/Indication Diagnosis SNOMED-CT Code Diagnosis ICD10 Code Diagnosis IMO Codes Diagnosis Note [id number] Jarrod ALEXIS MD [facility] [address] [place] [address] 08/27/2017 09:18:09 09/07/2017 08:33:08 Full thickness rotator cuff tear 285294277 M75.121 Localized, primary osteoarthritis of the shoulder region 845982647 M19.019 Health Concerns Section Related Observation LastModified by Organization Detai ls LastModified Time None Recorded Concern Status LastModified by Organization Details LastModified Time None Recorded Advance Directives Directive None Recorded Payers Insurance Date Sequence Insurance Name Policy Number Policy Valverde Covered Member ID Valverde Member ID Guarantor Name 11/07/2023 1 [employer] (POS) [id number] Zhao Guerrero [id number] Zhao Geurrero 11/13/2023 1 [place] [id number] 1 Zhao Guerrero [id number] Zhao Guerrero Notes Date Note Type Note Provider Name and Address Organization Details Recorded Time 08/27/2017 text/html He has never lost any motion and continues to have good function in his hand. He can do his work, but he has increasing symptoms. He has not had any recent x-rays or physical therapy. Jarrod ALEXIS MD [facility] [place], [address], [facility] 08/27/2017 15:03:06
--- OUTSIDE RECORDS SUMMARY | 2025-06-09 11:48 | XMS_ITS | Clinical Summary ---
Author Organization [facility] Address [address] [place] [address] Care Team Providers Care Veterinary Manager Name Role Phone Trena Fox MD Primary Care Provider + Allergies No known active allergies Medications naproxen sodium (ALEVE) 220 MG tablet Take 1 tablet by mouth 2 (Two) Times a Day As Needed. USUALLY JUST TAKE AT [facility] Active Aspirin EC Adult Low Dose 81 MG EC tablet TAKE ONE TABLET BY MOUTH EVERY DAY 90 tablet 4 5 Active doxazosin (CARDURA) 8 MG tablet Take 1 tablet by mouth Every Night. 90 tablet 3 5 Active omeprazole (priLOSEC) 20 MG capsule Take 1 capsule by mouth Every Night. 90 capsule 1 5 Active hydroCHLOROthia zide (MICROZIDE) 12.5 MG capsule Take 1 capsule by mouth Daily. 90 capsule 1 5 Active amLODIPine (NORVASC) 10 MG tablet TAKE ONE TABLET BY MOUTH EVERY DAY 90 tablet 5 Active rosuvastatin (CRESTOR) 20 MG tablet Take 1 tablet by mouth Daily. 90 tablet 5 Active rosuvastatin (CRESTOR) 20 MG tablet Take 1 tablet by mouth Daily. 90 tablet 1 5 05/13/20 25 Discontinu ed(Reorder ) Active Problems Problem Noted Date Diagnosed Date Coronary artery disease of n ative heart with stable angina pectoris 08/08/2022 Assessment & Plan (09/03/2024 6:46 PM EDT): -Stopping Betablocker due to symptomatic bradycardia -Could look at trying Propranolol at a later time Assessment & Plan (09/11/2022 5:49 PM EDT): April 2022 heart cath with some distal LAD disease that was too small for stenting. Medical therapy. Stable. Assessment & Plan (08/08/2022 9:55 AM EST): April 2022 heart cath with some distal LAD disease that was 2 months small for stenting. Medical therapy. Stable. Hyperlipidemia LDL goal <70 08/08/2022 Assessment & Plan (09/11/2022 5:50 PM EDT): He is on statin. We will update labs. Assessment & Plan (08/08/2022 9:55 AM EST): On statin ENEIDA (obstructive sleep apnea) 08/08/2022 Assessment & Plan (08/17/2024 8:21 PM EST): PAP machine, airflow, mask comfortable and working well. Patient is benefiting from PAP therapy. Plan to continue. Assessment & Plan (09/11/2022 5:51 PM EDT): On CPAP therapy. Benefiting from PAP therapy. Plan to continue. Addressed at last visit. Assessment & Plan (08/08/2022 9:58 AM EST): July 09, 2022 to August 15, 2022 CPAP compliance report download reviewed in clinic today. Shown patient uses machine 100% of the time uses over 4 hours 97% of the time for an average use of 7 hours 17 minutes. Overall AHI is 1.3. Shown excellent compliance and excellent control. Patient is benefiting from PAP therapy. We will plan to continue. Patient uses Sorrels, nasal mask, regular tubing. Precordial pain 04/17/2022 Overview (04/17/2022): Added automatically from request for surgery [id number] Assessment & Plan (08/08/2022 9:53 AM EST): No new complaints of chest pain or shortness of breath. Abnormal stress test 04/17/2022 Overview (04/17/2022): Added automatically from request for surgery [id number] Assessment & Plan (08/08/2022 9:54 AM EST): Abnormal stress test followed by heart cath in April 2022. He had some distal LAD disease that was too small for stenting. Medical therapy. Stable. Essential (primary) hypertension 04/17/2022 Overview (04/17/2022): Added automatically from request for surgery [id number] Assessment & Plan (09/03/2024 6:47 PM EDT): -intolerant to BB even at half of lowest dose, HR will not increase with walking uphill, etc so he becomes short of breath -Afraid to increase Amlodipine r/t already present edema, but given history of several other medications not controlling blood pressure we will increase to 10mg and continue HCTZ then see him back in a few weeks for nurse visit. -Could consider adding propranolol for Cad -Nurse visit for BP check in a few weeks Assessment & Plan (08/17/2024 8:21 PM EST): He continues to have excessive daytime fatigue and bradycardia. I do not want to lower his beta esperanza to allow heart rate to increase slightly due to blood pressure is already not at goal and would likely go even higher. Will start Amlodipine 5mg daily and cut Bisoprolol in half. Assessment & Plan (09/11/2022 5:50 PM EDT): Doing well on decreased dose of bisoprolol 5 mg half once daily Assessment & Plan (08/08/2022 9:54 AM EST): At goal today. Unfortunately heart rate is getting too low and causing patient to feel fatigue, weakness, and general malaise. We will have patient go back to bisoprolol half once a day. We will recheck blood pressure in 1 month. May need to make medication changes to accommodate for increased blood pressure but lower heart rate. Chest pain Overview (09/03/2024): AGE 27 Back pain Arthritis Overview (09/03/2024): right shoulder Resolved Problems Problem Noted Date Diagnosed Date Resolved Date Abrasion of left hand 08/14/20232023 Right ureteral calculus 08/14/202307/20 Encounters Date Type Department Care Team Description 05/13/2025 Refill [facility] [address] [place] [id number] Isabella Chávez APRN Med Refill 04/29/2025 Refill [facility] [address] [place] [id number] Molly Grace MD Med Refill from Last 3 Months Immunizations Immunization Administration Dates Next Due COVID-19 (MODERNA) 1st,2nd,3rd Dose Monovalent 0 11/05/2020,10/08/2020 Family History Medical History Relation Name Comments Hypertension Brother 1 Diabetes Brother 2 Hypertension Brother 2 Cancer Father BLADDER Heart attack Father Thyroid cancer Father Hypertension Mother Relation Name Status Comments Brother 1 Alive Brother 2 Alive Father Mother Social History Tobacco Use Types Packs/Day Years Used Date Smoking Tobacco: Never Passive Smoke Exposure: Never Smokeless Tobacco: Current Chew Tobacco Cessation:Ready to Q uit: No; Counseling Given: No Comments:IN QRS IT SAYS CURRENT EVERY DAY SMOKER Alcohol Use Standard Drinks/Week [...] on file Sexual Orientation Not on file Last Filed Vital Signs Vital Sign Reading Time Taken Comments Blood Pressure 150/72 09/17/2024 8:54 AM EDT Pulse 88 09/17/2024 8:54 AM EDT Temperature 36.6 C (97.9 F) 05/04/2022 10:09 AM EST Respiratory Rate 18 05/04/2022 12:46 PM EST Oxygen Saturation 98% 09/03/2024 9:19 AM EDT Inhaled Oxygen Concentration - - Weight 114 kg (252 lb 3.2 oz) 09/03/2024 9:19 AM EDT Height 172.7 cm (5' 8 ) 09/03/2024 9:19 AM EDT Body Mass Index 38.35 09/03/2024 9:19 AM EDT Plan of Treatment Health Maintenance Due Date Last Done Comments Pneumococcal Vaccine 50+ (1 of 2 - PCV) 1987 TDAP/TD VACCINES (1 - Tdap) 1987 COLOGUARD 2013 COLON CANCER SCREENING 5 YEA R SIGMOIDOSCOPY 2013 COLONOSCOPY [address] CANCER SCREENING 2013 [address] COLONOGRAPHY 2013 FECAL OCCULT BLOOD TEST 2013 FIT Testing (1 year) 2013 ZOSTER VACCINE (1 of 2) 2018 ANNUAL PHYSICAL 08/25/2020 HEPATITIS C SCREENING 08/25/2020 INFLUENZA VACCINE 01/16/2025 LIPID PANEL 06/09/2025 06/09/2024, 05/04/2022 Medical Devices Implanted Type Area Mortar Maker Device Identifier Shelf Expiration Date Model / Serial / Lot Sut Bone Dynacord W/Os/6 Ndl 2pk Strip/Hector - [id number] Implanted:Qty: 1 on 08/31/2020 by Zhao Fields Jr., MD at [facility] Implant Left: Shoulder DEPUY MITEK [id number] 03/17/2022 [id number] / / [id number] Kt Anch Shldr Tenolok Tenodesis W/Drl/Bit 7.5mm - [id number] Implanted:Qty: 1 on 08/31/2020 by Zhao Fields Jr., MD at [facility] Implant Left: Shoulder CONMED MEMO T60S75 / / [id number] Sut/Anch Healix Adv Br W/Dynacord 4.5mm - [id number] Implanted:Qty: 1 on 08/31/2020 by Zhao Fields Jr., MD at [facility] Implant Left: Shoulder DEPUY MITEK [id number] / / 0 Sut/Anch Healixadvance Br W/Dynatape 5.5mm Wht/Blk Hector - [id number] Implanted:Qty: 1 on 08/31/2020 by Zhao Fields Jr., MD at [facility] Implant Left: Shoulder DEPUY MITEK [id number] / / 0 Sut/Anch Healixadvance Br Dynatape 5.5mm Blk/Hector Wht/Hector/Grn - [id number] Implanted:Qty: 1 on 08/31/2020 by Zhao Fields Jr., MD at [facility] Implant Left: Shoulder DEPUY MITEK [id number] / / 0 Sut/Anch Knotlss Healicoil Regenesorb 5.5mm - [id number] Implanted:Qty: 1 on 08/31/2020 by Zhao Fields Jr., MD at [facility] Implant Left: Shoulder ESCALANTE AND NEPHEW [id number] 06/15/2023 [id number] / / [id number] Sut/Anch Knotlss Healicoil Regenesorb 5.5mm - [id number] Implanted:Qty: 1 on 08/31/2020 by Zhao Fields Jr., MD at [facility] Implant Left: Shoulder ESCALANTE AND NEPHEW [id number] / / [id number] Sut/Anch Knotlss Healicoil Regenesorb 5.5mm - [id number] Implanted:Qty: 1 on 08/31/2020 by Zhao Fields Jr., MD at [facility] Implant Left: Shoulder ESCALANTE AND NEPHEW [id number] / / [id number] Sut/Anch Knotlss Healicoil Regenesorb 5.5mm - [id number] Implanted:Qty: 1 on 08/31/2020 by Zhao Fields Jr., MD at [facility] Implant Left: Shoulder ESCALANTE AND NEPHEW [id number] 03/15/2023 [id number] / / [id number] Kt Anch Shldr Tenolok Tenodesis W/Drl/Bit 7.5mm - [id number] Implanted:Qty: 1 on 08/31/2020 by Zhao Fields Jr., MD at [facility] Implant Left: Shoulder CONMED MEMO [id number] 03/22/2023 [id number] / / [id number] Sut Fw #2 W/Tpr Ndl / Cir 38in 97cm 26.5mm Hector - [id number] Implanted:Qty: 2 on 05/10/2021 by Zhao Fields Jr., MD at [facility] Implant Right: Shoulder ARTHREX [id number] / / Sut/Anch Healix Adv Br W/Dynacord 4.5mm - [id number] Implanted:Qty: 1 on 05/10/2021 by Zhao Fields Jr., MD at [facility] Implant Right: Shoulder DEPUY MITEK [id number] 12/16/2023 [id number] / / [id number] Sut/Anch Dynatape Br 2.5mm Blk/Hector - [id number] Implanted:Qty: 1 on 05/10/2021 by Zhao Fields Jr., MD at [facility] Implant Right: Shoulder DEPUY MITEK [id number] 12/16/2023 [id number] / / [id number] Sut/Anch Dynatape Br 2.5mm Blk/Wht - [id number] Implanted:Qty: 1 on 05/10/2021 by Zhao Fields Jr., MD at [facility] Implant Right: Shoulder DEPUY MITEK [id number] 09/16/2023 [id number] / / [id number] Sut/Anch Knotlss Healicoil Regenesorb 5.5mm - [id number] Implanted:Qty: 1 on 05/10/2021 by Zhao Fields Jr., MD at [facility] Implant Right: Shoulder ESCALANTE AND NEPHEW [id number] 03/15/2024 [id number] / / [id number] Kt Anch Shldr Tenolok Tenodesis W/Drl/Bit 7.5mm - [id number] Implanted:Qty: 1 on 05/10/2021 by Zhao Fields Jr., MD at [facility] Implant Right: Shoulder CONMED MEMO [id number] 03/22/2023 T60S75 / / [id number] Procedures Procedure Name Priority Date/Time Associated Diagnosis Comments LIPID PANEL Routine 06/09/2024 Hyperlipidemia LDL goal <70 ENEIDA (obstructive sleep apnea) Essential (primary) hypertension from Last 3 Months or Most Recently Relevant to Health Maintenance Results * Lipid Panel (06/09/2024) Blood Emily Kurtz APRN LAB BLOOD ORDERABLE S Final Result [facility]
[address] [place] [address], from Last 3 Months or Most Recently Relevant to Health Maintenance Insurance PPO Member Subscriber Plan / Payer (Ef fective 2024-Present) Name:Zhao Guerrero Relation to Subscriber:Self Name:Zhao Guerrero Payer ID:[id number] (NAIC) Type:Not on file Address: [facility] [address] [place] [id number] Care Teams Veterinary Manager Relationship Specialty Start Date End Date Trena Fox MD [address] [place], [place] [id number] PCP - General Family Medicine 08/25/20
--- OUTSIDE RECORDS SUMMARY | 2025-06-09 11:48 | XMS_ITS | Patient Health Record ---
Author Organization [facility] Address [address] [id number] Care Team Providers Care Hydrometeorology Teacher Name Role Phone Ivory Rodney Primary Care Provider [phone] Melissa Artem Unavailable [phone] Cony Torres Unavailable [phone] Allergies No Known Allergies Results Component Value [...] PM Interpretation: Performing Lab: Notes/Report: Result: pos Medications Medication SIG (Take, Route, Frequency, Duration) Notes Start Date End Date Status Aspirin 81 MG 1 tablet Orally Once a day; Duration: 30 day(s) Active Doxazosin Mesylate 8 MG 1 tablet [...] Once a day; Duration: 30 day(s) Active Omeprazole 20 MG 1 tablet 30 minutes before morning meal Orally Once a day; Duration: 30 day(s) Active Problems Problem Type SNOMED Code ICD Code Onset Dates Problem Status W/U Status Risk Notes Problem Essential hypertension (76155112) HTN [Hypertens ion] (401.9) Active confirmed Vital Signs Heart Rate 73 /min 06/09/2025 Blood pressure diastolic 88 mm Hg 06/09/2025 Height 67 in 06/09/2025 Blood pressure systolic 148 mm Hg 06/09/2025 Weight 261 lbs 06/09/2025 BMI 40.87 kg/m2 06/09/2025 Encounters Encounter Location Date Provider Diagnosis Noe [address] [place] [address] [place] [id number] 02/04/2025 Cony Brian Acute URI J06.9 and COVID-19 U07.[address] [place] [address] [place] [id number] 06/09/2025 Artem Robert Pain in right knee M25.561 and Positive Akosua test of right knee, initial encounter S83.A Boby [address] [place] [address] [place] [id number] 03/02/2025 [facility] Rodney [facility] [address] [place] [address] [place] [id number] 03/12/2025 Ivroy Rodney Assessments Encounter Date Diagnosis (ICD Code) Assessment Notes Treatment Notes Treatment Clinical Notes Section Notes 02/04/2025 Acute URI (ICD-10 - J06.9) 02/04/2025 COVID-19 (ICD-10 - U07.1) Fluids, rest, supportive measures for fever and symptoms relief, discussed covid vitamins and isolation period. 03/02/2025 Colon cancer screening (ICD-10 - Z12.11) 06/09/2025 Pain in right knee (ICD-10 - M25.561) 06/09/2025 Positive Akosua test of right knee, initial encounter (ICD-10 - S83.206A) Plan Of Treatment Pending Test Test Name Order Date X ray : Knee, right 06/09/2025 colonoscopy 03/02/2025 Next Appt Details Provider Name:Artem Stone ry, 06/09/2025 11:15:00 AM, [address], [address], [place], [place], [id number], Insurance Providers Payer Name Payer Address Payer Phone Subscriber Number Group Number Insured Name Patient Relationship to Insured Coverage Start Date Coverage End Date [employer] [address] [place] [address] [id number] Zhao Guerrero Self - patient is the insured Medications Administered Medication Instructions Date of Administration Dosage Notes celestone 03/22/2011 Dexamethasone 09/13/2005 1 mL Dexamethasone 12/06/2005 1 mL Dexamethasone 08/06/2013 Medical (General) History Medical History History ICD Code Allergies Hypertension hyperlipidemia Surgical History Surgery Date(Month/Year) rotator cuff(RT.) 2005 back surgery 08/01 Right Rotator Cuff Surgery 2020 Left Rotator Cuff Surgery 2021 Hospitalization History Reason Date(Month/Year) heart attack 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
== END 2025-06-09 23:59 ==
LOC: RAD 11:45
PROVIDERS: PCP Family Medicine; Visit Provider Family Medicine
DX: M17.12 Unilateral primary osteoarthritis, left knee (principal)
CPT/HCPCS: 73562